=== PATIENT | male | born 1965 | race Caucasian/White ===

== ENCOUNTER 2021-07-18 12:54 | Emergency (ER) | payer OTHER ==
[2021-07-18 13:23] VITALS: TEMP 99
--- NOTE | 2021-07-18 13:44 | ED ---
General Adult HPI - General Chief complaint: Upper Respiratory Infection Stated complaint: Covid+/antibodies Time Seen by Provider: 07/18/21 13:35 Source: patient, RN notes reviewed Mode of arrival: ambulatory Limitations: no limitations - History of Present Illness Initial comments: Well-appearing 56-year-old male, alert and oriented 4, presents to the emergency room with a prescription from his doctor for monoclonal antibodies infusion. Patient tested positive in the office today for coronavirus. States that his symptoms started with a mild cough and fatigue on July 10. He states he has had body sweats at night but no documented fevers. He does have a history of hypertension. Denies any chest pain or difficulty in breathing, no nausea vomiting or diarrhea. States that he has decreased appetite but is tolerating by mouth fluids. Patient is agreeable to receiving the monoclonal antibody infusion. -: days(s) (8) Location: chest Severity scale (1-10): 0 Consistency: constant Improves with: none Worsens with: none Associated Symptoms: cough, malaise - Related Data Home Medications Medication Instructions Recorded Confirmed Ascorbic Acid [Vitamin C] 1,000 mg PO DAILY 07/18/21 07/18/21 Aspirin EC [Ecotrin Low Dose] 81 mg PO DAILY 07/18/21 07/18/21 Cholecalciferol [Vitamin D3 (25 50 mcg PO DAILY 07/18/21 07/18/21 Mcg = 1000 Iu)] Multivitamins, Thera [Multivitamin 1 tab PO DAILY 07/18/21 07/18/21 (formulary)] Zinc 50 mg PO DAILY 07/18/21 07/18/21 amLODIPine BESYLATE 10 mg PO DAILY 07/18/21 07/18/21 Allergies Allergy/AdvReac Type Severity Reaction Status Date / Time No Known Allergies Allergy Verified 07/18/21 15:54 Review of Systems ROS Statement: Those systems with pertinent positive or pertinent negative responses have been documented in the HPI. ROS Other: All systems not noted in ROS Statement are negative. Past Medical History Past Medical History: No Reported History History of Any Multi-Drug Resistant Organisms: None Reported Past Surgical History: Orthopedic Surgery Past Psychological History: No Psychological Hx Reported Smoking Status: Never smoker Past Alcohol Use History: None Reported Past Drug Use History: None Reported General Exam Limitations: no limitations General appearance: alert, in no apparent distress Head exam: Present: atraumatic, normocephalic, normal inspection Eye exam: Present: normal appearance, EOMI ENT exam: Present: normal exam, normal oropharynx, mucous membranes moist Neck exam: Present: normal inspection, full ROM. Absent: tenderness, meningismus, lymphadenopathy Respiratory exam: Present: normal lung sounds bilaterally. Absent: respiratory distress, wheezes, rales, rhonchi, stridor Cardiovascular Exam: Present: regular rate, normal rhythm, normal heart sounds. Absent: systolic murmur, diastolic murmur, rubs, gallop, clicks Neurological exam: Present: alert, oriented X3, normal gait Psychiatric exam: Present: normal affect, normal mood Skin exam: Present: warm, dry, intact, normal color. Absent: rash, cyanosis, diaphoretic, erythema, petechiae, pallor Course Vital Signs 07/18/21 07/18/21 13:17 16:40 Temperature 99 F Pulse Rate 100 89 Respiratory 16 20 Rate Blood Pressure 173/79 147/79 O2 Sat by Pulse 98 94 L Oximetry Medical Decision Making - Medical Decision Making Well-appearing 56-year-old male presents to the emergency room with sore throat, cough and fatigue since July 10. He was seen by his primary care Dr Powers today and sent with a prescription for monoclonal antibody infusion after and tested positive for coronavirus today. His oxygen saturation is 98%, he has no respiratory distress. He denies any chest pain or nausea and vomiting. He does have a history of hypertension. He tolerated the monoclonal antibody infusion without any complications. Lungs sounds remain clear to auscultation. Will be discharged home to follow up with his primary care doctor. Self quarantine for 10 days from symptom onset and 24 hours without fever. Case discussed with Dr. Tinoco Disposition Clinical Impression: COVID-19 Disposition: HOME SELF-CARE Condition: Good Instructions (If sedation given, give patient instructions): Coronavirus Disease 2019 (COVID-19) Additional Instructions: Continue taking your vitamin C, vitamin D and zinc. Increase your fluid intake. Return to the emergency room with any new or worsening symptoms including chest pain or difficulty in breathing. Self quarantine for 10 days after symptom onset and 24 hours without a fever. Is patient prescribed a controlled substance at d/c from ED?: No Referrals: Nonstaff,Physician [Primary Care Provider] - 1-2 days
[2021-07-18] MEDS ORDERED: SODIUM CHLORIDE 0.9% 50 ML IVPB ONE (14:15)
[2021-07-18] MEDS ORDERED: CASIRIVIMAB (REGN10933) (EUA) 600 MG, IMDEVIMAB (REGN10987) (EUA) 600 MG in SODIUM CHLO... IVPB ONE (14:45)
[2021-07-18 16:41] VITALS: BP 147/79; PULSE 89; RESP 20
== END 2021-07-18 16:41 | disposition home or self-care (01) ==
LOC: EC 12:54
DX: U07.1 COVID-19 (principal)
CPT/HCPCS: 99282; Q0244